=== PATIENT | male | born 1970 | race Caucasian/White ===

== ENCOUNTER 2025-07-01 15:24 | Outpatient (AMB) | payer OTHER, SELFPAY ==
--- NOTE | 2025-07-01 15:31 | A.OFFVIS_ITS ---
Intake Visit Reasons: Testo/uro check Intake Note: Reason for Visit: Urine Check Urology Meds: None Blood Thinners: None: Family History: Prostate Cancer? no Bladder Cancer?no Kidney Cancer?no Extension Division Director Required: No Allergies No Known Allergies Allergy (Verified 07/01/25 15:37) HPI Comments Details: Jorgito is a pleasant male. He is a patient of Dr. Dela Cruz. He is seen for the following urologic conditions - hypogonadism Anomaly on testosterone testing Has had fatigue, lack of energy, concern regarding gynecomastia Normal libido, adequate erections Has been placed on spironolactone for blood pressure related issues Also on rosuvastatin 5 mg Has inappropriate ratio of estrogen to testosterone Recommend repeat full set baseline testosterone labs Switch from rosuvastatin to ezetimibe to minimize cholesterol impact on testosterone production Spironolactone possibly contributing - well known peripheral androgen receptor ruby with estrogen shunting although he reports symptoms started prior to spironolactone use Four week recheck labs, 6 week follow-up If does not tolerate spironolactone would switch to indapamide Baseline labs - 02/18 T 510 E 50 PFSH Medical History (Updated 07/01/25 @ 16:13 by Daniel Jefferson MD) Headache HTN (hypertension) Review of Systems Const Denies chills and Denies fever(s) Card Reports no additional complaints and Denies syncope Resp Denies cough GI Denies abdominal pain and Denies heartburn Reports as per HPI and Denies change in libido Neuro Denies syncope Psych Denies change in libido Endo Denies change in libido Physical Exam Const General: cooperative, healthy appearing, comfortable and no acute distress Orientation/consciousness: patient oriented x3 HEENT Face and sinus: Yes normal facial exam Mouth: moist mucous membranes Neck Neck: Yes normal visual inspection, Yes full ROM and Yes trachea midline Chest Chest palpation & inspection: normal inspection of the chest Resp Effort & Inspection: normal respiratory effort, able to speak in complete sentences and no respiratory distress GI Inspection: Yes normal to inspection Back/Spine/Pelvis Cervical Spine: normal cervical lordosis Thoracic/Lumbar Spine: thoracic and lumbar spine normal to inspection Skin General skin exam: no rashes or lesions noted Neuro General: patient oriented x3, gait normal, tone normal and moves all extremities Extrem General: Yes normal to inspection and Yes capillary refill normal Results AMB Urinalysis, Automated UA Leukoctes 0 Kaye/uL Last Edit by Sarah Rebollar, A on 07/01/25 15:49 UA Nitrite Negative Last Edit by Sarah Rebollar, RMA on 07/01/25 15:49 UA Urobilinogen 0.2 mg/dL Last Edit by Sarah Rebollar, RMA on 07/01/25 15:4 9 UA Protein 0 mg/dL Last Edit by Sarah Rebollar, RMA on 07/01/25 15:49 UA pH 6.0 Last Edit by Sarah Rebollar, RMA on 07/01/25 15:49 UA Blood 0 Benigno/uL Last Edit by Sarah Rebollar, RMA on 07/01/25 15:49 UA Specific [place] 1.020 Last Edit by Sarah Rebollar, A on 07/01/25 15: 49 UA Ketone Negative Last Edit by Sarah Rebollar, A on 07/01/25 15:49 UA Bilirubin 0 mg/dL Last Edit by Sarah Rebollar, RMA on 07/01/25 15:49 UA Glucose 0 mg/dL Last Edit by Sarah Rebollar, A on 07/01/25 15:49 Results Reviewed Results Reviewed: Laboratory Last Values Urine pH (Auto) 6.0 07/01/25 15:40 Specific [place] (Auto) 1.020 07/01/25 15:40 Urine Protein (Auto) 0 mg/dL 07/01/25 15:40 Glucose (UA)(Auto) 0 mg/dL 07/01/25 15:40 Urine Ketones (Auto) Negative 07/01/25 15:40 Urine Blood (Auto) 0 Benigno/uL 07/01/25 15:40 Urine Nitrite (Auto) Negative 07/01/25 15:40 Urine Bilirubin (Auto) 0 mg/dL 07/01/25 15:40 Urine Urobilinogen (Auto) 0.2 mg/dL 07/01/25 15:40 Leukocyte Esterase (Auto) 0 Kaye/uL 07/01/25 15:40 Assessment & Plan Assessment & Plan (1) Hypogonadism in male: Code(s): E29.1 - Testicular hypofunction Category: Medical Plan Switch to ezetimibe Repeat lab work 4 weeks Orders: Orders Lipid Panel 4 Weeks E29.1 - Testicular hypofunction AMB Urinalysis Automated 07/01/25 Z13.9 - Encounter for screening, unspecified Sex Hormone Binding Globulin 4 Weeks E29.1 - Testicular hypofunction Testosterone, Free/Total 4 Weeks E29.1 - Testicular hypofunction Lutenizing Hormone 4 Weeks E29.1 - Testicular hypofunction Estrad Free (Tot Ultra + Free) 4 Weeks E29.1 - Testicular hypofunction Bioavailable Testosterone 4 Weeks E29.1 - Testicular hypofunction Medications: New ezetimibe 10 mg PO DAILY 90 tabs 0RF 90 days E29.1 - Testicular hypofunction Patient Instructions: This note is constructed using voice recognition software. While every effort has been made to ensure accuracy plastic fabricator errors may have been included. Imaging studies, laboratory and physical exam results were discussed and reviewed in detail. No major barriers to patient understanding were identified. An opportunity to ask questions regarding the treatment plan was provided. All questions were answered. The patient expressed understanding and agreement with the above treatment plan. The patient is aware they should contact our office by phone for worsening of their current condition or the appearance of new urologic symptoms. Compliance is encouraged with any medications and followup testing that is ordered. It is a privilege to participate in the urologic care of your patient. If you have any questions or concerns regarding treatment for the above conditions, or other urologic issues, please do not hesitate to contact me. The office telephone contact is [phone]. Sincerely, Dr Daniel Jefferson MD, [place] [facility] - Urology Compassionate Specialist Care for the Genitourinary System Coding Level of Care Code New Pt Level 4 (83999) Diagnoses Hypogonadism in male E29.1
--- OUTSIDE RECORDS SUMMARY | 2025-07-01 19:21 | XMS_ITS ---
Author Name [facility] Organization Unknown History of Medication Use Medication Directions Dispensed Refills Start Date End Date Stat us losartan-hydrochlor othiazide (HYZAAR) 100-25 mg tablet 12/01/2018 active Medications not documented Medications not documented completed Problems Problem Status Onset Date Problem Type Date of Resolution Source Screening examination for pulmonary tuberculosis active EncounterDiagnosisAct [facility] Immunizations Vaccine Date Source Lot Number Status PPD Test 01/11/2025 [facility] [id number] completed PPD Test 01/15/2024 [facility] [id number] completed PPD Test 01/27/2023 [facility] [id number] completed Flublok Trivalent Prefilled Syringe (18+ years) 05/21/2022 [facility] [id number] completed PPD Test 01/22/2022 [facility] [id number] completed Flucelvax Trivalent PFS IM; Without Preservative (18+ mos) 05/07/2021 [facility] [id number] completed PPD Test 01/22/2021 [facility] [id number] completed PPD Test 01/24/2020 [facility] [id number] completed PPD Test 01/27/2019 [facility] [id number] completed PPD Test 02/10/2018 [facility] [id number] completed Boostrix (Tdap) Prefilled Syringe 01/19/2018 [facility] 54 B74 completed Fluarix Quadrivalent Prefilled Syringe 04/21/2017 [facility] [id number] completed Engerix-B Adult Prefilled Syringe 02/13/2017 [facility] 2K J42 completed PPD Test 02/13/2017 [facility] [id number] completed Engerix-B Adult Prefilled Syringe 08/08/2016 [facility] C7 EP5 completed Fluarix Quadrivalent Prefilled Syringe 04/15/2016 [facility] [id number] completed MMR Single Dose Vial 04/15/2016 [facility] [id number] comp leted MMR Single Dose Vial 02/27/2016 [facility] [id number] comp leted PPD Test 02/27/2016 [facility] [id number] completed Recombivax HB Adult Single Dose Vial 02/27/2016 [facility] [id number] completed Encounters Encounter Type Encounter Reason Primary Diagnosis Location Date Ambulatory TB Skin Test Placement Encounter for screening for respiratory tuberculosis [facility] 01/11/2025 [facility] 08/21/2022 Care Team Organization Name Specialty Phone Email Start Date End Da te [facility] CRISTEL GAINES Primary Care 01/11/2025 [facility] Sarah Mckeon Primary Care 09/02/2022 09/02/2022 [facility] John Ely Primary Care 04/01/2024 [facility] 08/21/2022 08/21/2022
--- OUTSIDE RECORDS SUMMARY | 2025-07-01 19:21 | XMS_ITS | Clinical Summary ---
Author Organization [facility] Address [address] [place] [address] Care Team Providers Care Tire Servicer Name Role Phone Solis Lopez MD Primary Care Provider [phone] Medications Sildenafil Citrate (VIAGRA) 100 MG tablet TAKE 1 TABLET BY MOUTH, NEEDED, APPROXIMATELY 1 HOUR BEFORE SEXUAL ACTIVITY. 4 0 2 Active Imiquimod (ALDARA) 5 % cream 20 0 2 Active Piroxicam (FELDENE) 20 MG capsule TAKE 1 CAPSULE BY MOUTH EVERY DAY WITH FOOD FOR 30 DAYS 30 0 2 Active Doxycycline Monohydrate (MONODOX) 100 MG capsule 28 0 3 Active predniSONE (DELTASONE) 50 MG tablet TAKE 1 TABLET BY MOUTH EVERY DAY 5 DAYS 5 0 3 Active Active Problems Problem Noted Date Diagnosed Date Headache 09/19/2022 Facial pain 09/19/2022 DNS (deviated nasal septum) 09/19/2022 Epistaxis 09/19/2022 Chronic sinusitis 09/19/2022 Social History Tobacco Use Types Packs/Day Years Used Date Smoking Tobacco: Never Assessed Sex and Gender Information Value Date Recorded Sex Assigned at Not on file Legal Sex Male 11:33 PM EDT Gender Identity Not on file Sexual Orientation Not on file Plan of Treatment Health Maintenance Due Date Last Done Comments Hepatitis C Screening 1970 DTaP/Tdap/Td (1 - Tdap) 1988 Hep B (1 of 3 - 19+ 3-dose series) 1989 Colon Cancer Screening 2015 Pneumococcal 50+ years (1 of 1 - PCV) 2020 Zoster (Shingrix) (1 of 2) 2020 COVID-19 Vaccine (2024-2 6 season) 2025 Influenza (#1) 2025 RSV (1 - 1-dose 75+ series) 2045 HPV Vaccine (No Doses Required) Completed Hep A Aged Out No longer eligi ble based on patient's age to complete this topic Hib Aged Out No longer eligi ble based on patient's age to complete this topic Meningococcal ACWY Aged Out No longer eligible based on patient's age to complete this topic Care Teams Tire Servicer Relationship Specialty Start Date End Date Solis Lopez MD [address] [place] [address] PCP - General 03/03/23
--- OUTSIDE RECORDS SUMMARY | 2025-07-01 19:21 | XMS_ITS | Clinical Summary ---
Author Organization [employer] [facility] Prior to 12/25/24 Address [address] [place] [address] Care Team Providers Care Metalsmith Apprentice Name Role Phone Unknown, Primary Care Provider Unavailabl e Social History Tobacco Use Types Packs/Day Years Used Date Smoking Tobacco: Never Assessed Sex and Gender Information Value Date Recorded Sex Assigned at Not on file Gender Identity Not on file Sexual Orientation Not on file Job Start Date Occupation Industry Not on file Not on file Not on file Plan of Treatment Health Maintenance Due Date Last Done Comments Hepatitis B Vaccines (1 of 3 - 3-dose series) 1970 Hepatitis C Screening 1970 COVID-19 Vaccine (#1) 1970 Depression Screening 1982 Preventative Health Evaluation 1988 Colon Cancer Screening (Colonoscopy) 2015 DTap / Tdap / Td (2 - Td or Tdap) 08/28/2017 008 Shingrix-Zoster Vaccine (1 of 2) 2020 Influenza Vaccine (#1) 2025 05/15/2010 Pneumococcal Vaccine Aged Out No long er eligible based on patient's age to complete this topic RSV Ped < 20 months Aged Out No longe r eligible based on patient's age to complete this topic Care Teams Metalsmith Apprentice Relationship Specialty Start Date End Date Unknown, PCP - General 03/20/23
== END 2025-07-01 16:22 | disposition home or self-care (01) ==
LOC: HO.HUSH 15:24
PROVIDERS: PCP Nurse Practitioner Family; Visit Provider Urology
DX: Z13.9 Encounter for screening, unspecified (principal)
CPT/HCPCS: 99204

== ENCOUNTER → 2025-07-01 15:24 | Outpatient (BNVA) | payer OTHER, SELFPAY | PROVIDERS: PCP Nurse Practitioner Family; Visit Provider Urology | DX: E29.1 Testicular hypofunction (principal) | CPT/HCPCS: 81003 ==

== ENCOUNTER 2025-07-27 08:19 | Outpatient (REF) | payer OTHER, SELFPAY ==
--- OUTSIDE RECORDS SUMMARY | 2025-07-27 08:24 | XMS_ITS | Patient Health Record ---
[facility] Address [address] [place] [address] Care Team Providers Care Mri Technician Name Role Phone Carmela HENLEY, Devin Primary Care Provider Unavaila Mojgan Lewis Unavailable [phone] Allergies No Known Allergies Reason For Referral No Information Medications Medication SIG (Take, Route, Frequency, Duration) Notes Start Date End Date Status Feldene 20 MG 1 capsule with food Orally Once a day; Duration: 30 day(s) 07/04/2022 Active Losartan Potassium 100 MG 1 tablet Orall y Once a day; Duration: 30 day(s) Not-Taking hydroCHLOROthiazide 25 MG 1 tablet in morning Orally Once a day; Duration: 30 day(s) Not-Taking Immunizations Vaccine Route Administration Date Status Comme nts COVID-19 Moderna Vaccine Unknown 10/05/2020 Administered 1st vaccine 08/28 08/17 Social History Tobacco Use: Social History Observation Description Date Details (start date - stop date) Never Smoker NA - NA Tobacco Use/Smoking Question Answer Notes Are you a: nonsmoker Additional Findings: Tobacco Non-User Aggressive non-smoker Alcohol Screen Question Answer Notes Did you have a drink contain ing alcohol in the past year? Yes How often did you have a dri nk containing alcohol in the past year? 2 to 3 times a week (3 points) How many drinks did you have on a typical day when you were drinking in the past year? 1 or 2 drinks (0 point) How often did you have 6 or more drinks on one occasion in the past year? Never (0 point) Points 3 Interpretation Negative Tobacco use other than smoking: Question Answer Notes Are you an other tobacco user? 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
--- OUTSIDE RECORDS SUMMARY | 2025-07-27 08:24 | XMS_ITS | Clinical Summary ---
Author Organization [facility] Address [address] [place] [address] Care Team Providers Care Assortment Planner Name Role Phone Solis Lopez MD Primary Care Provider [phone] Medications Sildenafil Citrate (VIAGRA) 100 MG tablet [...] age to complete this topic Care Teams Assortment Planner Relationship Specialty Start Date End Date Solis Lopez MD [address] [place] [address] PCP - General 03/03/23
--- OUTSIDE RECORDS SUMMARY | 2025-07-27 08:24 | XMS_ITS | Clinical Summary ---
Author Organization [employer] [facility] Prior to 12/25/24 Address [address] [place] [address] Care Team Providers Care Social Worker Name Role Phone Unknown, Primary Care Provider [...] age to complete this topic Care Teams Social Worker Relationship Specialty Start Date End Date Unknown, PCP - General 03/20/23
--- OUTSIDE RECORDS SUMMARY | 2025-07-27 08:24 | XMS_ITS | Patient Health Record ---
Author Organization [facility] Address [address] [place] [address] [id number] Care Team Providers Care Teamsite Developer Name Role Phone Hortencia Dela Cruz Primary Care Provider Allergies No Known Allergies Results Component Value Reference Range Notes CBC With Differential/Platel et-[id number] Reviewed date:10/26/2024 07:03:50 PM Interpretation: Performing Lab:[facility] [place], [address] [place] [address], Phone - [phone], Director - Keven Notes/Report: WBC 9.0 3.4-10.8 x10E3/uL RBC 5.52 4.14-5.80 x10E6/uL Hemoglobin 16.2 13.0-17.7 g/dL Hematocrit 49.0 37.5-51.0 % MCV 89 79-97 fL MCH 29.3 26.6-33.0 pg MCHC 33.1 31.5-35.7 g/dL RDW 13.4 11.6-15.4 % Platelets 286 150-450 x10E3/uL Neutrophils 58 Not Estab. % Lymphs 32 Not Estab. % Monocytes 6 Not Estab. % Eos 3 Not Estab. % Basos 1 Not Estab. % Neutrophils (Absolute) 5.3 1.4-7.0 x10E3/uL Lymphs (Absolute) 2.8 0.7-3.1 x10E3/uL Monocytes(Absolute) 0.5 0.1-0.9 x10E3/uL Eos (Absolute) 0.2 0.0-0.4 x10E3/uL Baso (Absolute) 0.1 0.0-0.2 x10E3/uL Immature Granulocytes 0 Not Estab. % Immature Grans (Abs) 0.0 0.0-0.1 x10E3/uL Estrogens, Total-[id number] Reviewed date:09/13/2024 07:43:17 AM Interpretation: Performing Lab:[facility] [place], [address] [place] [address] [place], Phone - [phone], Director [facility] Notes/Report: Estrogens, Total 105 56-213 pg/mL Prepubertal <40 Prolactin-[id number] Reviewed date:09/13/2024 07:43:17 AM Interpretation: Performing Lab:[facility] [place], [address] [place] [address] [place], Phone - [phone], [facility] Notes/Report: Prolactin 12.5 3.6-25.2 ng/mL FSH-[id number] Reviewed date:09/13/2024 07:43:17 AM Interpretation: Performing Lab:[facility] [place], [address] [place] [address], [place], Phone - [phone], [facility] Notes/Report: FSH 5.5 1.5-12.4 mIU/mL Luteinizing Hormone(LH)-0042 83 Reviewed date:09/13/2024 07:43:17 AM Interpretation: Performing Lab:[facility] [place], [address] [place] [address], Phone - [phone], [facility] Notes/Report: LH 8.7 1.7-8.6 mIU/mL Testosterone-[id number] Reviewed date:09/13/2024 07:43:17 AM Interpretation: Performing Lab:[facility] [place], [address] [place] [address], Phone - [phone], [facility] Notes/Report: Testosterone 458 264-916 ng/dL Adult male reference interval is based on a population of healthy nonobese males (BMI <30) between 19 and 39 years old. Felicia et.al. JCEM 2017,102;4630-8054. PMID: 67082732. Phosphatidylethanol (PEth)-7 44203 Reviewed date:10/25/2024 01:23:49 PM Interpretation: Performing Lab:[facility] [place], [facility], [place], Phone - [phone], [facility] Notes/Report: PHOSPHATIDYLETHANOL Positive Phosphatidylethanol (PEth) 88 Analyzed compound: PEth 16:0/18:1. 7-fucmyrpvf-3-oleoyl-sn- twdomqi-1-gahzfrlhgseevg . Analysis performed by Liquid Chromatography with Tandem Mass Spectrometry (LC/MS/MS). Detection limit: 20 ng/mL PEth levels in excess of 20 ng/mL are considered evidence of moderate to heavy ethanol consumption. However, the [facility] for Substance Abuse [facility] (CSAT) advises caution in interpretation and use of biomarkers alone to assess alcohol use. Results should be interpreted in the context of all available clinical and behavioral information. Reference: Substance Abuse and Mental Health Services Administration (2012). The Role of Biomarkers in the Treatment of Alcohol Use Disorders , 2012 Revision. Advisory, Volume 11, Issue 2. This test was developed and its performance characteristics determined by [facility]. It has not been cleared or approved by the Food and Drug Administration. FIB-4 w/Rx VILLA [facility] [address] us-[id number] Reviewed date:10/25/2024 01:23:49 PM Interpretation: Performing Lab:[facility], Phone - [phone], Director - Keven Notes/Report: AST (SGOT) 20 0-40 IU/L ALT (SGPT) 20 0-44 IU/L Platelets 238 150-450 x10E3/uL FIB-4 Index 1.01 0.00-2.67 0.00 - 1.29 Low risk for advanced liver fibrosis 1.30 - 2.67 Indeterminate risk for advanced liver fibrosis >2.67 High risk for advanced fibrosis and for the development of other liver related events Ferritin-[id number] Reviewed date:10/25/2024 01:23:49 PM Interpretation: Performing Lab:[facility], Phone - [phone], Director - Keven Notes/Report: Ferritin 522 30-400 ng/mL FSH-[id number] Reviewed date:10/25/2024 01:23:49 PM Interpretation: Performing Lab:[facility] [address] [place] [address], Phone - [phone], Director - Keven Notes/Report: FSH 5.4 1.5-12.4 mIU/mL Luteinizing Hormone(LH)-0042 83 Reviewed date:10/25/2024 01:23:49 PM Interpretation: Performing Lab:[facility] [address] [place] [address], Phone - [phone], Director - Keven Notes/Report: LH 7.3 1.7-8.6 mIU/mL Testosterone-[id number] Reviewed date:10/25/2024 01:23:49 PM Interpretation: Performing Lab:[facility] [place], [address] [facility], [place], Phone - [phone], Director - Keven Notes/Report: Testosterone 512 264-916 ng/dL Adult male reference interval is based on a population of healthy nonobese males (BMI <30) between 19 and 39 years old. Felicia et.al. JCEM 2017,102;2891-7352. PMID: 27702354. PSA Total+% Free-[id number] Reviewed date:10/26/2024 07:03:50 PM Interpretation: Performing Lab:[facility] [place], [address] [facility], [place], Phone - [phone], Director - Keven Notes/Report: Prostate Specific Ag 1.3 0.0-4.0 ng/mL Jason ECLIA methodology. . According to the [place] [employer], Serum PSA should decrease and remain at undetectable levels after radical prostatectomy. The AUA defines biochemical recurrence as an initial PSA value 0.2 ng/mL or greater followed by a subsequent confirmatory PSA value 0.2 ng/mL or greater. Values obtained with different assay methods or kits cannot be used interchangeably. Results cannot be interpreted as absolute evidence of the presence or absence of malignant disease. PSA, Free 0.42 N/A ng/mL Jason ECLIA met hodology. % Free PSA 32.3 The table below lists the probability of prostate cancer for men with non-suspicious SAGRARIO results and total PSA between 4 and 10 ng/mL, by patient age (Calvin et al, ANTHONY 1998, 279:1542). % Free PSA 50-64 yr 65-75 yr 0.00-10.00% 56% 55% 10.01-15.00% 24% 35% 15.01-20.00% 17% 23% 20.01-25.00% 10% 20% >25.00% 5% 9% Please note: Calvin et al did not make specific recommendations regarding the use of percent free PSA for any other population of men. LP+Non-HDL Cholesterol-90954 5 Reviewed date:10/26/2024 07:03:50 PM Interpretation: Performing Lab:[facility] [place], [address] [facility], [place], Phone - [phone], Director - DEJodry Notes/Report: Cholesterol, Total 140 100-199 mg/dL Triglycerides 156 0-149 mg/dL HDL Cholesterol 50 >39 mg/dL VLDL Cholesterol Beka 27 5-40 mg/dL LDL Chol Calc ([facility]) 63 0-99 mg/dL Non-HDL Cholesterol 90 0-129 mg/dL Comp. Metabolic Panel (14)-3 Reviewed date:10/26/2024 07:03:50 PM Interpretation: Performing Lab:[facility] [place], [address] [place] [address], Phone - [phone], Director - MDdry Notes/Report: Glucose 88 70-99 mg/dL BUN 14 6-24 mg/dL Creatinine 1.00 0.76-1.27 mg/dL eGFR 89 >59 mL/min/1.73 BUN/Creatinine Ratio 14 9-20 Sodium 139 134-144 mmol/L Potassium 4.6 3.5-5.2 mmol/L Chloride 99 96-106 mmol/L Carbon Dioxide, Total 22 20-29 mmol/L Calcium 10.2 8.7-10.2 mg/dL Protein, Total 7.3 6.0-8.5 g/dL Albumin 4.9 3.8-4.9 g/dL Globulin, Total 2.4 1.5-4.5 g/dL Bilirubin, Total 0.8 0.0-1.2 mg/dL Alkaline Phosphatase 54 44-121 IU/L AST (SGOT) 20 0-40 IU/L ALT (SGPT) 19 0-44 IU/L HCV Antibody RFX to Quant PC [id number] Reviewed date:10/26/2024 07:03:50 PM Interpretation: Performing [facility] [place], [address] [place] [address], Phone - [phone], Director [facility]Report: HCV Ab Non Reactive Non Reactive Interpretation: Not infected with HCV unless early or acute infection is suspected (which may be delayed in an immunocompromised individual), or other evidence exists to indicate HCV infection. Albumin/Creatinine Ratio,Uri ne-[id number] Reviewed date:10/26/2024 07:03:50 PM Interpretation: Performing Lab[facility] [place], [address] [place] [address], Phone - [phone], Director - MDKirstiedry Notes/Report: Creatinine, Urine 134.9 Not Estab. mg/dL Albumin, Urine <3.0 Not Estab. ug/mL Alb/Creat Ratio <2 0-29 mg/g creat Normal: 0 - 29 Moderately increased: 30 - 300 Severely increased: >300 Vitamin D, 14-Nhdvyrn-129886 Reviewed date:10/26/2024 07:03:50 PM Interpretation: [facility]forming [facility], [address] [place] [address], [place], Phone - [phone], Director - Keven Notes/Report: Vitamin D, 25-Hydroxy 32.5 30.0-100.0 ng/mL Vitamin D deficiency has been defined by the [place] of [employer] and an Endocrine Society practice guideline as a level of serum 25-OH vitamin D less than 20 ng/mL (1,2). The Endocrine Society went on to further define vitamin D insufficiency as a level between 21 and 29 ng/mL (2). 1. IOM ([place] of [employer]). 2010. Dietary reference intakes for calcium and D. [place]: The National Academies Press. 2. Manpreet MF, Blanco GARDNER, Saida COOPER, et al. Evaluation, treatment, and prevention of vitamin D deficiency: an Endocrine Society clinical practice guideline. JCEM. 2010; 96(7):1911-30. Urinalysis, Complete-[id number] Reviewed date:10/26/2024 07:03:50 PM Interpretation: Performing Lab:[facility] [place], [address] [place] [address], [place], Phone - [phone], Director - Keven Notes/Report: Specific [place] 1.020 1.005-1.030 pH 6.0 5.0-7.5 Urine-Color Yellow Yellow Appearance Clear Clear WBC Esterase Negative Negative Protein Negative Negative/Trace Glucose Negative Negative Ketones Negative Negative Occult Blood Negative Negative Bilirubin Negative Negative Urobilinogen,Semi-Qn 0.2 0.2-1.0 mg/dL Nitrite, Urine Negative Negative Microscopic Examination Micr oscopic follows if indicated. Microscopic Examination See below: Micr oscopic was indicated and was performed. WBC None seen 0 - 5 /hpf RBC None seen 0 - 2 /hpf Epithelial Cells (non renal) None seen 0 - 10 /hpf Casts None seen None seen /lpf Bacteria None seen None seen/Few TSH reflex to [id number] Reviewed date:09/13/2024 07:43:17 AM Interpretation: Performing Lab:[facility], [address] [facility], [place], Phone - [phone], Director - Keven Notes/Report: TSH 1.460 0.450-4.500 uIU/mL LP+Non-HDL Cholesterol-59527 5 Reviewed date:09/13/2024 07:43:17 AM Interpretation: Performing Lab:[facility] [place], [address] [facility], [place], Phone - [phone], Director - Keven Notes/Report: Cholesterol, Total 93 100-199 mg/dL Triglycerides 87 0-149 mg/dL HDL Cholesterol 40 >39 mg/dL VLDL Cholesterol Beka 17 5-40 mg/dL LDL Chol Calc (NIH) 36 0-99 mg/dL Non-HDL Cholesterol 53 0-129 mg/dL CBC With Differential/Platel et-[id number] Reviewed date:09/13/2024 07:43:17 AM Interpretation: Performing Lab:[facility] [place], [address] [place] [address], [place], Phone - [phone], Director - Maryy Notes/Report: WBC 7.0 3.4-10.8 x10E3/uL RBC 5.02 4.14-5.80 x10E6/uL Hemoglobin 14.8 13.0-17.7 g/dL Hematocrit 44.1 37.5-51.0 % MCV 88 79-97 fL MCH 29.5 26.6-33.0 pg MCHC 33.6 31.5-35.7 g/dL RDW 13.5 11.6-15.4 % Platelets 263 150-450 x10E3/uL Neutrophils 55 Not Estab. % Lymphs 33 Not Estab. % Monocytes 7 Not Estab. % Eos 3 Not Estab. % Basos 1 Not Estab. % Neutrophils (Absolute) 3.9 1.4-7.0 x10E3/uL Lymphs (Absolute) 2.3 0.7-3.1 x10E3/uL Monocytes(Absolute) 0.5 0.1-0.9 x10E3/uL Eos (Absolute) 0.2 0.0-0.4 x10E3/uL Baso (Absolute) 0.1 0.0-0.2 x10E3/uL Immature Granulocytes 1 Not Estab. % Immature Grans (Abs) 0.1 0.0-0.1 x10E3/uL Ferritin-[id number] Reviewed date:09/13/2024 07:43:17 AM Interpretation: Performing [facility], [address] [place] [address], Phone - [phone], Director - [facility] Notes/Report: Ferritin 559 30-400 ng/mL Vitamin [id number] Reviewed date:09/13/2024 07:43:16 AM Interpretation: Performing Lab:[facility] [place], [address] [place] [address], Phone - [phone], Director - [facility] Notes/Report: Vitamin B12 827 626-9707 pg/mL Iron and TIBC-[id number] Reviewed date:09/13/2024 07:43:16 AM Interpretation: Performing Lab:[facility] [place], [address] [place] [address], Phone - [phone], Director - [facility] Notes/Report: Iron Bind.Cap.(TIBC) 354 250-450 ug/dL UIBC 269 111-343 ug/dL Iron 85 38-169 ug/dL Iron Saturation 24 15-55 % Reason For Referral No Information Medications Medication SIG (Take, Route, Frequency, Duration) Notes Start Date End Date Status Albuterol Sulfate HFA 108 (90 Base) MCG/ACT USE 2 PUFFS PRN INHALATION EVERY 4 HOURS FOR COUGH 30 DAYS Inhalation every 4 hrs; Duration: 30 days Active Naproxen 500 MG TAKE 1 TABLET BY ANUPAM TH EVERY 12 HOURS WITH FOOD OR MILK NEEDED; Duration: 30 Active Spironolactone 100 MG TAKE 1 TABLET BY M OUTH EVERY DAY; Duration: 90 Active Wegovy 2.4 MG/0.75ML INJECT 0.75 ML SUBCUTANEOUSLY WEEKLY; Duration: 28 Active Rosuvastatin Calcium 5 MG TAKE 1 TABLET BY MOUTH EVERY DAY FOR 30 DAYS; Duration: 90 Active Ramipril 10 MG 1 capsule Orally Onc e a day; Duration: 30 days Active Immunizations Vaccine Route Administration Date Status Comme nts Influenza-Afluria (IIV4) Unknown 04/29/2018 Administere d Hep B, adult dosage, for intramuscular use Unknown 02/13/2017 Administered [id number]-85-Jrrtgqx Vaccine Unknown 09/09/2020 Administere d UGJIM-85-Assiope Vaccine Unknown 10/05/2020 Administere d PFLIT-02-Wexeznd Vaccine Unknown 06/10/2021 Administere d COVID-19 Moderna BiValent Booster Unknown 08/12/2022 Ad ministered *Tdap Unknown 01/16/2021 Administered *Shingrix Unknown 09/24/2024 Administered Social History Tobacco Use: Social History Observation Description Date Details (start date - stop date) Never Smoker NA - NA Tobacco Use/Smoking Question Answer Notes Are you a nonsmoker Alcohol Screen (Audit-C) Question Answer Notes Did you have a drink contain ing alcohol in the past year? Yes How often did you have a dri nk containing alcohol in the past year? Monthly or less (1 point) How many drinks did you have on a typical day when you were drinking in the past year? 1 or 2 drinks (0 point) How often did you have 6 or more drinks on one occasion in the past year? Less than monthly (1 point) Points 2 Interpretation Negative Tobacco use other than smoking: Question Answer Notes Are you an other tobacco user? 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 Problem Testicular hypofunction (266757485) Testicular hypofunction (E29.1) Active confirmed Problem Vitamin D deficiency (75152503) Vitamin D deficiency, unspecified (E55.9) Active confirmed Problem Mixed hyperlipidemia (608348895) Mixed hyperlipidemia (E78.2) Active confirmed Problem Hypoactive sexual desire disorder (781815392) Hypoactive sexual desire disorder (F52.0) Active confirmed Problem Carpal tunnel syndrome (32389357) Carpal tunnel syndrome, right upper limb (G56.01) Active confirmed Problem Meralgia paresthetica (54820068) Meralgia paresthetica, left lower limb (G57.12) Active confirmed Problem Tinnitus of left ear (7484990813214) Tinnitus, left ear (H93.12) Active confirmed Problem Chronic kidney disease due to hypertension (892438523182594) Hypertensive chronic kidney disease with stage 1 through stage 4 chronic kidney disease, or unspecified chronic kidney disease (I12.9) Active confirmed Problem Atherosclerotic heart disease of nondalton coronary artery without angina pectoris (662162534003733) 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) Active confirmed Problem Chronic frontal sinusitis (21799709) Chronic frontal sinusitis (J32.1) Active confirmed Problem VILLA - Nonalcoholic steatohepatitis (904291253) Nonalcoholic steatohepatitis (VILLA) (K75.81) Active confirmed Problem Sciatica (30467435) Lumbago with sciatica, left side (M54.42) Active confirmed Problem Chronic kidney disease stage 1 (417683934) Chronic kidney disease, stage 1 (N18.1) Active confirmed Problem Erectile dysfunction (disorder) (625351032) Erectile dysfunction due to diseases classified elsewhere (N52.1) Active confirmed Problem Hyperesthesia (24458120) Hyperesthesia (R20.3) Active confirmed Problem Screening for malignant neoplasm of colon (239000940) Encounter for screening for malignant neoplasm of colon (Z12.11) Active confirmed Vital Signs Heart Rate 85 /min 01/27/2025 Temperature 97.5 degrees Fahrenheit 01/27/2025 Blood pressure diastolic 68 mm Hg 01/27/2025 Oximetry 98 % 01/27/2025 Height 6 ft 3 in in 01/27/2025 Blood pressure systolic 120 mm Hg 01/27/2025 Weight 211 lbs 01/27/2025 BMI 26.37 kg/m2 01/27/2025 Encounters Encounter Location Date Provider Diagnosis Chioma Thomas MD [address] [id number] 01/27/2025 Hortencia Dela Cruz Hypertensive chronic kidney disease with stage 1 through stage 4 chronic kidney disease, or unspecified chronic kidney disease I12.9 ; Chronic kidney disease, stage 1 N18.1 ; Mixed hyperlipidemia E78.2 ; Atherosclerotic heart disease of nondalton coronary artery without angina pectoris I25.10 and Body mass index [BMI] 26.0-26.9, adult Z68.26 Chioma Thomas MD [address] [id number] 08/26/2024 Hortencia Dela Cruz Hypertensive chronic kidney disease with stage 1 through stage 4 chronic kidney disease, or unspecified chronic kidney disease I12.9 ; Chronic kidney disease, stage 1 N18.1 ; Mixed hyperlipidemia E78.2 ; Atherosclerotic heart disease of nondalton coronary artery without angina pectoris I25.10 ; Body mass index [BMI] 26.0-26.9, adult Z68.26 and Hyperesthesia R20.3 Chioma Thomas MD [address] [id number] 10/25/2024 Hortencia Dela Cruz Encounter for genera l adult medical examination without abnormal findings Z00.00 ; Hypertensive chronic kidney disease with stage 1 through stage 4 chronic kidney disease, or unspecified chronic kidney disease I12.9 ; Chronic kidney disease, stage 1 N18.1 ; Mixed hyperlipidemia E78.2 ; Atherosclerotic heart disease of nondalton coronary artery without angina pectoris I25.10 ; Body mass index [BMI] 26.0-26.9, adult Z68.26 ; Hyperesthesia R20.3 ; Hypoactive sexual desire disorder F52.0 ; Erectile dysfunction due to diseases classified elsewhere N52.1 ; Vitamin D deficiency, unspecified E55.9 ; Encounter for screening for malignant neoplasm of colon Z12.11 ; Encounter for screening for cardiovascular disorders Z13.6 ; Encounter for immunization Z23 ; Encounter for antibody response examination Z01.84 ; Encounter for screening for other viral diseases Z11.59 ; Encounter for screening examination for other mental health and behavioral disorders Z13.39 and Encounter for screening for malignant neoplasm of prostate Z12.5 Chioma Thomas MD [address] [id number] 07/13/2025 Hortencia Thomas MD [address] [id number] 04/12/2025 Hortencia Spanne Herpesviral vesicula r dermatitis B00.1 Chioma Thomas MD [address] [id number] 09/13/2024 Hortencia Spanne Testicular hypofunct ion E29.1 and Nonalcoholic steatohepatitis (VILLA) K75.81 Chioma Thomas MD [address] [id number] 12/20/2024 Hortenciarobin Dela Cruz Hypertensive chronic kidney disease with stage 1 through stage 4 chronic kidney disease, or unspecified chronic kidney disease I12.9 Chioma Thomas MD [address] [id number] 08/10/2024 Hortencia Thomas MD [address] [id number] 07/30/2024 Hortencia Dela Cruz Testicular hypofunct ion E29.1 Assessments Encounter Date Diagnosis (ICD Code) Assessment Notes Treatment Notes Treatment Clinical Notes Section Notes 07/30/2024 Testicular hypofunction (ICD-10 - E29.1) 08/26/2024 Hypertensive chronic kidney disease with stage 1 through stage 4 chronic kidney disease, or unspecified chronic kidney disease (ICD-10 - I12.9) Blood pressure stable during today's visit. Patient offers no negative side effects since transitioning to lisinopril due to ramipril shortage. Would like patient to return to ramipril use and we will send a prescription in for ramipril 10 mg as patient was well-controlled on that dosing in combination with spironolactone. If patient is not able to obtain ramipril he can remain on 40 mg of lisinopril as this is also controlling his blood pressure well. Plan will be for follow-up in 3 months to reassess blood pressure 08/26/2024 Chronic kidney disease, stage 1 (ICD-10 - N18.1) Stable with previous GFR noted to be the in the 90s. 09/13/2024 Testicular hypofunction (ICD-10 - E29.1) 09/13/2024 Nonalcoholic steatohepatitis (VILLA) (ICD-10 - K75.81) 10/25/2024 Hypertensive chronic kidney disease with stage 1 through stage 4 chronic kidney disease, or unspecified chronic kidney disease (ICD-10 - I12.9) Blood pressure much improved since adjusting his hypertension medication. Patient to continue on current medication regimen with follow-up in 4 months to reassess blood pressure 10/25/2024 Encounter for general adult medical examination without abnormal findings (ICD-10 - Z00.00) General healthcare up-to-date. Will obtain a updated routine labs.Plan will be for annual in 1 year 12/20/2024 Hypertensive chronic kidney disease with stage 1 through stage 4 chronic kidney disease, or unspecified chronic kidney disease (ICD-10 - I12.9) 01/27/2025 Hypertensive chronic kidney disease with stage 1 through stage 4 chronic kidney disease, or unspecified chronic kidney disease (ICD-10 - I12.9) Blood pressure stable during today's visit. Patient to remain on current medication regiment 01/27/2025 Chronic kidney disease, stage 1 (ICD-10 - N18.1) Stable with previous GFR noted to be the in the 90s. Patient to continue control of comorbidities of hypertension to ensure appropriate GFR levels 04/12/2025 Herpesviral vesicular dermatitis (ICD-10 - B00.1) 01/27/2025 Mixed hyperlipidemia (ICD-10 - E78.2) Patient to remain on Rosuvastatin given findings of mild vessel disease given his calcium scoring test results. Patient aware that this medication was started to prevent any worsening vessel disease and patient agreeable to work on lifestyle and dietary changes to also ensure no worsening vessel disease. 10/25/2024 Chronic kidney disease, stage 1 (ICD-10 - N18.1) Stable with previous GFR noted to be the in the 90s. Will obtain an updated GFR level at this time 08/26/2024 Mixed hyperlipidemia (ICD-10 - E78.2) Patient to remain on Rosuvastatin given findings of mild vessel disease given his calcium scoring test results. Patient aware that this medication was started to prevent any worsening vessel disease and patient agreeable to work on lifestyle and dietary changes to also ensure no worsening vessel disease. Did spend time discussing that we will repeat his calcium score in 4 more years to reassess cardiovascular risk 08/26/2024 Atherosclerotic heart disease of nondalton coronary artery without angina pectoris (ICD-10 - I25.10) Patient to remain on rosuvastatin given mild vessel disease noted on calcium scoring test 10/25/2024 Mixed hyperlipidemia (ICD-10 - E78.2) Patient to remain on Rosuvastatin given findings of mild vessel disease given his calcium scoring test results. Patient aware that this medication was started to prevent any worsening vessel disease and patient agreeable to work on lifestyle and dietary changes to also ensure no worsening vessel disease. 01/27/2025 Atherosclerotic heart disease of nondalton coronary artery without angina pectoris (ICD-10 - I25.10) Patient to remain on rosuvastatin given mild vessel disease noted on calcium scoring test 01/27/2025 Body mass index [BMI] 26.0-26.9, adult (ICD-10 - Z68.26) Patient continues to take Wegovy weekly and has lost over 40 pounds since beginning this medication in November 2023. Patient to also continue working on lifestyle and dietary modifications as well as increasing his exercise to further improve his BMI and maintain his weight loss 10/25/2024 Atherosclerotic heart disease of nondalton coronary artery without angina pectoris (ICD-10 - I25.10) Patient to remain on rosuvastatin given mild vessel disease noted on calcium scoring test 08/26/2024 Body mass index [BMI] 26.0-26.9, adult (ICD-10 - Z68.26) Patient continues to take Wegovy weekly and has lost over 40 pounds since beginning this medication in November 2024. Patient to also continue working on lifestyle and dietary modifications as well as increasing his exercise to further improve his BMI and maintain his weight loss 08/26/2024 Hyperesthesia (ICD-10 - R20.3) Patient does share concerns of increased cold sensation since losing weight. Will obtain labs to ensure there is no underlying deficiencies such as iron or B12 given his diet changes and potential calorie deficits given Wegovy 10/25/2024 Body mass index [BMI] 26.0-26.9, adult (ICD-10 - Z68.26) Patient continues to take Wegovy weekly and has lost over 40 pounds since beginning this medication in November 2023. Patient to also continue working on lifestyle and dietary modifications as well as increasing his exercise to further improve his BMI and maintain his weight loss 10/25/2024 Hyperesthesia (ICD-10 - R20.3) Patient continues to have increased cold sensations throughout his body since losing weight. Will obtain labs to ensure there is no underlying deficiencies such as iron or B12 given his diet changes and potential calorie deficits given Wegovy 10/25/2024 Hypoactive sexual desire disorder (ICD-10 - F52.0) Patient spent much time discussing his concerns of low libido and at times erectile dysfunction. Patient's previous testosterone level did improve after repeat but his luteinizing hormone was noted to be high. Patient is feeling overall defeated with his sexual dysfunction and did discuss many different medication regimens and options to further help with his libido. Given his hormone irregularity we will begin a trial of topical testosterone to see if this can further improve his libido and erectile concerns. Patient agreeable to be seen in 3 months to reassess and determine if testosterone is working to help manage his underlying concerns 10/25/2024 Erectile dysfunction due to diseases classified elsewhere (ICD-10 - N52.1) See plan above. Patient to be seen in 3 months for follow-up and to discuss symptoms after beginning topical testosterone gel. Cautioned patient that this topical treatment could be transferable to his and he should ensure that he uses this during the day and showers before getting into bed at night. Patient aware to follow-up should his erectile dysfunction concerns continue despite topical testosterone treatment as we could discuss oral therapies to further improve his ED 10/25/2024 Vitamin D deficiency, unspecified (ICD-10 - E55.9) Will check level to verify that there is no deficiency 10/25/2024 Encounter for screening for malignant neoplasm of colon (ICD-10 - Z12.11) Patient completed his Cologuard in 2022 with negative results. He is up-to-date with his colon cancer screenings and will repeat Cologuard in 202510/25/2024 Encounter for screening for cardiovascular disorders (ICD-10 - Z13.6) Blood pressure stable. Will check for comorbidity of hyperlipidemia and hyperglycemia to further assess risk 10/25/2024 Encounter for immunization (ICD-10 - Z23) Vaccines up-to-date 10/25/2024 Encounter for antibody response examination (ICD-10 - Z01.84) Titers have been checked in the past and there is immunity to rubeola 10/25/2024 Encounter for screening for other viral diseases (ICD-10 - Z11.59) Will screen for hepatitis C as per general recommendation 10/25/2024 Encounter for screening examination for other mental health and behavioral disorders (ICD-10 - Z13.39) PHQ score reviewed and no further interventions warranted 10/25/2024 Encounter for screening for malignant neoplasm of prostate (ICD-10 - Z12.5) Will obtain a PSA level realizing the limitations of this as a screening test only 10/25/2024 Other Plan Of Treatment Pending Test Test Name Order Date Pulmonary Function Test 06/05/2023 UA/M w/rflx Culture, Routine-[id number] 09/26 PSA Total+% Free-[id number] 10/23/2023 Next Appt Details Provider Name:Hortencia Dela Cruz , 11/03/2025 03:30:00 PM, [address] [place] [address], [address], [place], [place], [id number], Insurance Providers Payer Name Payer Address Payer Phone Subscriber Number Group Number Insured Name Patient Relationship to Insured Coverage Start Date Coverage End Date [facility] [employer] [facility] [address] [place] [address] [id number] Hieu Harris Self - patient is the insured Medical (General) History Medical History History ICD Code HTN Deviated Septum (right) Chronic sinusitis Hearing loss - left ear Peroneal neuropathy left lower limb Surgical History Surgery Date(Month/Year) [place]unyan surgery and tendon transfer left leg 2014 [place] surgery right leg 2017 Hernia (inguinal left) - repaired Hospitalization History Reason Date(Month/Year)
[2025-07-27 10:54] LABS: Cholesterol 183 mg/dL (<200); HDL Cholesterol 45 mg/dL (>40); Triglycerides 112 mg/dL (<150)
== END 2025-07-27 08:20 | disposition home or self-care (01) ==
LOC: HO.10HDL 08:19
PROVIDERS: Visit Provider Urology
DX: E29.1 Testicular hypofunction (principal); Z13.6 Encounter for screening for cardiovascular disorders
CPT/HCPCS: 36415; 80061; 82670; 82681; 83002; 84270; 84402; 84403